=== PATIENT | female | born 1990 | race Hispanic/Latino ===

== ENCOUNTER 2024-02-22 00:01 | Emergency (ER) | payer MEDICARE ==
[2024-02-22 00:07] VITALS: PULSE 114; RESP 19; TEMP 98.4; O2SAT 100
[2024-02-22] MEDS: LIDOCAINE HCL 1% LOCAL INJ 20 ML VIAL INJ STA (00:18)
[2024-02-22] MEDS ORDERED: CEPHALEXIN500 MG PO (00:18)
[2024-02-22] MEDS: TETANUS/DIPHTHERIA TOX ADULT 0.5 ML SYR IM ONE (00:19)
== END 2024-02-22 00:23 | disposition home or self-care (01) ==
LOC: ER 00:16
DX: S51.812A Laceration without foreign body of left forearm, initial encounter (principal); W26.0XXA Contact with knife, initial encounter; Y92.89 Other specified places as the place of occurrence of the external cause
CPT/HCPCS: 12001; 90471; 90714; 99283; J2003